=== PATIENT | male | born 1955 | race African-American/Black ===

== ENCOUNTER 2018-02-05 16:09 | Inpatient (IN) ==
[2018-02-05 16:36] LABS: Baso % (Auto) 0.7 % (0.0-2.0); Eos # (Auto) 0.2 th/mm3 (0.0-0.4); Hematocrit 35.3 % (39.0-51.0); Hemoglobin 11.4 gm/dL (13.0-17.0); Lymph # (Auto) 1.9 th/mm3 (1.0-4.8); Mean Corpuscular HGB Conc 32.2 % (32.0-36.0); Mean Platelet Volume 9.2 fL (7.0-11.0); Mono # (Auto) 0.6 th/mm3 (0.0-0.9); Mono % (Auto) 10.6 % (0.0-8.0); Neut # (Auto) 2.6 th/mm3 (1.8-7.7); Neut % (Auto) 49.7 % (16.0-70.0); Platelet Count 158 th/mm3 (150-450); Red Blood Count 4.06 mil/mm3 (4.50-5.90); White Blood Count 5.3 th/mm3 (4.0-11.0)
[2018-02-05 16:52] LABS: Activated Partial Thrombo Time 25.3 sec (24.3-30.1); INR 1.1 Ratio; Prothrombin Time 10.9 sec (9.8-11.6)
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
[2018-02-05] MEDS ORDERED: Diphtheria/Tetanus/Pertussis Vaccine Inj 0.5 ML Syringe IM ONE (17:00)
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
[2018-02-05] MEDS ORDERED: Bisacodyl 10 MG Supp RECTAL PRN (20:27)
[2018-02-05] MEDS ORDERED: Post-op Orders (for Pharmacy) OTHER ONE (20:27)
[2018-02-05] MEDS ORDERED: Naloxone Inj 0.4 MG/ML Vial IV.PUSH PRN (20:27)
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
[2018-02-05] MEDS: Morphine Inj 4 MG/ML Vial IV.PUSH PRN (22:32)
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
[2018-02-05] MEDS ORDERED: Carvedilol 6.25 MG Tablet PO SCH (22:45)
[2018-02-05] MEDS: niCARdipine Inj 25 MG in Sodium Chlor 0.9% Inj 240 ML IV.CONT PRN (23:39)
[2018-02-05] MEDS: Sod Chloride 0.9% Inj 1,000 ML IV.CONT SCH (23:40)
[2018-02-06 01:07] LABS: Amphetamine Screen,Urine Neg (Neg); Barbiturate Screen,Urine Neg (Neg); Cannabinoid Screen,Urine Neg (Neg); Cocaine Screen,Urine Neg (Neg)
[2018-02-06 01:09] LABS: Opiate Screen,Urine Pos (Neg)
[2018-02-06] MEDS: Morphine Inj 4 MG/ML Vial IV.PUSH PRN (03:39)
[2018-02-06] MEDS: niCARdipine Inj 25 MG in Sodium Chlor 0.9% Inj 240 ML IV.CONT PRN ×2 (04:00→08:42)
[2018-02-06 06:42] LABS: Baso # (Auto) 0.1 th/mm3 (0.0-0.2); Baso % (Auto) 0.9 % (0.0-2.0); Eos # (Auto) 0.1 th/mm3 (0.0-0.4); Eos % (Auto) 0.8 % (0.0-4.0); Hemoglobin 11.7 gm/dL (13.0-17.0); Lymph # (Auto) 1.5 th/mm3 (1.0-4.8); Lymph % (Auto) 21.7 % (9.0-44.0); Mean Corpuscular HGB Conc 32.6 % (32.0-36.0); Mean Corpuscular Hemoglobin 28.6 pg (27.0-34.0); Mean Corpuscular Volume 87.6 fL (80.0-100.0); Mean Platelet Volume 10.5 fL (7.0-11.0); Mono # (Auto) 0.6 th/mm3 (0.0-0.9); Mono % (Auto) 7.9 % (0.0-8.0); Neut # (Auto) 4.9 th/mm3 (1.8-7.7); Neut % (Auto) 68.7 % (16.0-70.0); Platelet Count 158 th/mm3 (150-450); Red Cell Distribution Width 14.7 % (11.6-17.2); White Blood Count 7.2 th/mm3 (4.0-11.0)
[2018-02-06 07:06] LABS: Calcium 8.2 mg/dL (8.5-10.1); Carbon Dioxide 24.3 meq/L (21.0-32.0); Potassium 4.2 meq/L (3.5-5.1)
[2018-02-06] MEDS: Senna/Docusate Sodium 8.6/50 MG Tablet PO SCH ×3 (08:36→20:14)
[2018-02-06] MEDS: Lisinopril 10 MG Tablet PO SCH ×3 (08:36→20:15)
[2018-02-06] MEDS: Lidocaine 5% Patch T-DERMAL SCH (08:44)
[2018-02-06] MEDS: Sod Chloride 0.9% Inj 1,000 ML IV.CONT SCH ×2 (08:50→17:32)
[2018-02-06] MEDS: Multivitamin Inj 10 ML, Thiamine Inj 100 MG, Folic Acid Inj 1 MG in Sodium Chlor 0.9% I... IV.SIG SCH (08:51)
[2018-02-06] MEDS ORDERED: amLODIPine 5 MG Tablet PO SCH (10:15)
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
[2018-02-06] MEDS ORDERED: amLODIPine 5 MG Tablet PO ONE (14:25)
[2018-02-06] MEDS ORDERED: hydrALAZINE 25 MG Tablet PO PRN (14:25)
--- NOTE | 2018-02-06 14:44 | ECG ---
Date Performed: 02/05/2018 Time Performed: 22:25:32 PTAGE: 89 years EKG: Sinus Bradycardia. Baseline artifact. Normal ECG except for rate NO PREVIOUS TRACING DOCTOR: Jake Dougherty Interpretating Date/Time 02/06/2018 14:42:30
--- NOTE | 2018-02-06 16:31 | ECHRPT ---
Indication: HHD CONCLUSIONS The left ventricular systolic function is hyperdynamic with an estimated ejection fraction in the ra nge of 65- 70%. Normal left ventricular size. Moderate concentric left ventricular hypertrophy. No regional wall motion abnormalities are present. The pulmonary valve is not well visualized. BP: / HR: Rhythm: MEASUREMENTS (Male / Female) Normal Values Technical Quality: 2D ECHO LV Diastolic Diameter PLAX 5.3 cm 4.2 - 5.9 / 3.9 - 5.3 cm LV Systolic Diameter PLAX 3.3 cm IVS Diastolic Thickness 1.5 cm 0.6 - 1.0 / 0.6 - 0.9 cm LVPW Diastolic Thickness 1.5 cm 0.6 - 1.0 / 0.6 - 0.9 cm LV Relative Wall Thickness 0.6 RV Internal Dim ED PLAX 2.8 cm LVOT Diameter 2.1 cm LA Systolic Diameter LX 3.8 cm 3.0 - 4.0 / 2.7 - 3.8 cm LV Ejection Fraction MOD 4C 69.6 % LV Ejection Fraction 4C AL 71.1 % M-MODE Aortic Root Diameter MM 2.3 cm LA Systolic Diameter MM 3.9 cm LA Ao Ratio MM 1.7 AV Cusp Separation MM 2.5 cm DOPPLER AV Peak Velocity 195.5 cm/s AV Peak Gradient 15.3 mmHg LVOT Peak Velocity 127.0 cm/s LVOT Peak Gradient 6.5 mmHg AV Area Cont Eq pk 2.3 cm MV Area PHT 1.5 cm Mitral E Point Velocity 86.4 cm/s LV E' Lateral Velocity 5.9 cm/s Mitral E to LV E' Lateral Ratio 14.5 LV E' Septal Velocity 5.4 cm/s Mitral E to LV E' Septal Ratio 16.1 PV Peak Velocity 132.0 cm/s PV Peak Gradient 7.0 mmHg FINDINGS LEFT VENTRICLE The left ventricular systolic function is hyperdynamic with an estimated ejection fraction in the ra nge of 65- 70%. Normal left ventricular size. Moderate concentric left ventricular hypertrophy. No regional wall motion abnormalities are present. RIGHT VENTRICLE Normal right ventricular size and systolic function. LEFT ATRIUM The left atrial size is normal. RIGHT ATRIUM The right atrial size is normal. ATRIAL SEPTUM Normal atrial septal thickness without atrial level shunting by limited color doppler interrogation. AORTA The aortic root and proximal ascending aorta are normal in size on limited imaging. MITRAL VALVE Structurally normal mitral valve. No mitral valve stenosis or regurgitation. AORTIC VALVE Trileaflet aortic valve. No aortic valve stenosis or regurgitation. TRICUSPID VALVE Structurally normal tricuspid valve. No tricuspid valve stenosis or regurgitation. PULMONARY VALVE The pulmonary valve is not well visualized. VESSELS The inferior vena cava is normal in size. PERICARDIUM No pericardial effusion. Brody Ervin MD (Electronically Signed) Final Date:06 February 2018 16:30
[2018-02-06] MEDS ORDERED: hydrALAZINE 25 MG Tablet PO ONE (16:45)
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
[2018-02-06] MEDS: Enoxaparin Inj 40 MG/0.4 ML Syringe SQ SCH (21:42)
[2018-02-07] MEDS: Morphine Inj 4 MG/ML Vial IV.PUSH PRN ×2 (01:06→04:36)
[2018-02-07] MEDS: Sod Chloride 0.9% Inj 1,000 ML IV.CONT SCH ×2 (04:58→14:19)
--- NOTE | 2018-02-07 05:43 | XR ---
EXAM DATE: 02/07/2018 5:33 AM EDT AGE/SEX: 62 years / Male INDICATIONS: Shortness of breath. CLINICAL DATA: This is the patient's subsequent encounter. Patient reports that signs and symptoms h ave been present for 2 days and indicates a pain score of Nonresponsive. MEDICAL/SURGICAL HISTORY: Non-responsive. Non-responsive. COMPARISON: [facility], CHEST 1V SINGLE AP, 02/05/2018. . FINDINGS: Single AP view of the chest. Increased left lower lobe atelectasis versus consolidation. Right lung i s clear. Cardiomediastinal silhouette unchanged. No evidence of pleural effusion or pneumothorax. Met allic lead is again seen in the midline mediastinum. CONCLUSION: Slight increase in inferior left lower lobe atelectasis versus consolidation. No other significant in terval change. Electronically signed by: Naveen Abdalla MD 02/07/2018 5:42 AM EDT
[2018-02-07] MEDS: Enoxaparin Inj 40 MG/0.4 ML Syringe SQ SCH (08:28)
[2018-02-07] MEDS: amLODIPine 10 MG Tablet PO SCH (08:28)
[2018-02-07] MEDS: Lidocaine 5% Patch T-DERMAL SCH (08:28)
[2018-02-07] MEDS: Senna/Docusate Sodium 8.6/50 MG Tablet PO SCH ×2 (08:29→21:16)
[2018-02-07] MEDS: Multivitamin Inj 10 ML, Thiamine Inj 100 MG, Folic Acid Inj 1 MG in Sodium Chlor 0.9% I... IV.SIG SCH (08:34)
[2018-02-07] MEDS: Lisinopril 10 MG Tablet PO SCH ×2 (08:34→21:16)
[2018-02-07] MEDS: hydrALAZINE 25 MG Tablet PO SCH (08:34)
--- NOTE | 2018-02-07 09:10 | P.PNCA ---
Subjective Interval history: No sx, sinus gavi to 40 seen, pt generally somnolent Physical Exam Vital signs: Vital Signs 02/06/18 12:00 02/06/18 14:18 02/06/18 16:00 Temperature 98.9 F 98.7 F 98.5 F Pulse Rate 50 L 51 L 42 L Respiratory Rate 17 17 17 Blood Pressure 146/67 H 159/77 H 177/84 H Pulse Oximetry 100 97 99 02/06/18 16:03 02/06/18 20:00 02/07/18 00:00 Temperature 97.7 F 98.4 F Pulse Rate 53 L 44 L Respiratory Rate 18 20 Blood Pressure 166/75 H 183/84 H Pulse Oximetry 97 97 97 02/07/18 02:27 02/07/18 04:00 02/07/18 04:38 Temperature 98.3 F Pulse Rate 50 L Respiratory Rate 18 20 Blood Pressure 200/85 H 190/95 H Pulse Oximetry 96 02/07/18 08:00 02/07/18 08:49 Temperature 98.6 F Pulse Rate 50 L Respiratory Rate 20 Blood Pressure 228/100 H 146/88 H Pulse Oximetry 96 Intake & Output 02/06/18 02/07/18 02/07/18 18:59 06:59 18:59 Intake Total 2541.2 / 2541.2 1360 / 1360 Output Total 1550 / 1550 1200 / 1200 Balance 991.2 / 991.2 160 / 160 Weight 108 kg Intake: IV 2061.2 / 2061.2 1000 / 1000 NS Inj 1,000 ML @ 100 mls/hr IV 1000 / 1000 1000 / 1000 .CONT .Q10H KATHRYN Rx#:[id number] Cardene Inj 25 MG In NS Inj 240 250 / 250 ML @ 5 MG/HR 50 mls/hr IV.CONT TITRATE PRN Rx#:[id number] Ofirmev Inj 1,000 mg In 100 ml 300 / 300 @ 400 mls/hr IV.SIG Q6H KATHRYN Rx# :[id number] MVI-12 Inj 10 ML Thiamine Inj 511.2 / 511.2 100 MG Folvite Inj 1 MG In NS Inj 500 ML @ 127.8 mls/hr IV. SIG DAILY KATHRYN Rx#:[id number] Oral 480 / 480 360 / 360 Output: Urine 1550 / 1550 1200 / 1200 Other: Date of Last Bowel Movement 07/21/18 - Constitutional no acute distress, somnolent - Routine HEENT Exam Head: Present: normocephalic - Routine Cardiovascular Exam Present: murmur, bradycardia - Routine Abdominal Exam Present: soft - Routine Extremities Exam Absent: edema Assessment and Plan - Assessment (1) Syncope Code(s): R55 - Syncope and collapse Status: Acute Plan: Likely med related, but w/ baseline bradycardia will plan for a loop recorder (2) Bradycardia Code(s): R00.1 - Bradycardia, unspecified Status: Acute Plan: suspect some element of KASSANDRA; recommend out pt sleep study, loop as above
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
[2018-02-08 04:23] LABS: Baso % (Auto) 0.6 % (0.0-2.0); Eos # (Auto) 0.1 th/mm3 (0.0-0.4); Hematocrit 36.5 % (39.0-51.0); Lymph # (Auto) 1.8 th/mm3 (1.0-4.8); Lymph % (Auto) 27.6 % (9.0-44.0); Mean Corpuscular HGB Conc 32.8 % (32.0-36.0); Mean Corpuscular Hemoglobin 28.6 pg (27.0-34.0); Mean Corpuscular Volume 87.4 fL (80.0-100.0); Mean Platelet Volume 10.2 fL (7.0-11.0); Mono # (Auto) 0.7 th/mm3 (0.0-0.9); Mono % (Auto) 10.1 % (0.0-8.0); Neut # (Auto) 3.9 th/mm3 (1.8-7.7); Neut % (Auto) 59.7 % (16.0-70.0); Platelet Count 147 th/mm3 (150-450); Red Blood Count 4.17 mil/mm3 (4.50-5.90); Red Cell Distribution Width 14.3 % (11.6-17.2); White Blood Count 6.6 th/mm3 (4.0-11.0)
[2018-02-08] MEDS ORDERED: Midazolam Inj 5 MG/ML 1 ML Vial ONE (07:58)
[2018-02-08] MEDS ORDERED: fentaNYL Citrate Inj 100 MCG/2 ML Ampul ONE (07:58)
--- NOTE | 2018-02-08 08:32 | P.PNCA ---
Subjective Interval history: No new events, he tolerated loop well Physical Exam Vital signs: Vital Signs 02/07/18 08:49 02/07/18 12:00 02/07/18 16:00 Temperature 98.6 F 98.8 F Pulse Rate 64 52 L Respiratory Rate 21 21 Blood Pressure 146/88 H 149/70 H 204/93 H Pulse Oximetry 97 96 02/07/18 19:34 02/07/18 20:00 02/08/18 00:00 Temperature 98.3 F Pulse Rate 53 L 58 L Respiratory Rate 21 20 Blood Pressure 160/88 H 150/85 H Pulse Oximetry 96 96 94 L 02/08/18 02:09 02/08/18 04:00 Temperature 99.1 F Pulse Rate 57 L Respiratory Rate 17 18 Blood Pressure 200/100 H Pulse Oximetry 97 Intake & Output 02/07/18 02/08/18 02/08/18 18:59 06:59 18:59 Intake Total 1240 / 1240 980 / 980 Output Total 800 / 800 2300 / 2300 Balance 440 / 440 -1320 / -1320 Weight 108.2 kg Intake: IV 1000 / 1000 NS Inj 1,000 ML @ 100 mls/hr IV 1000 / 1000 .CONT .Q10H KATHRYN Rx#:[id number] MVI-12 Inj 10 ML Thiamine Inj 0 / 0 100 MG Folvite Inj 1 MG In NS Inj 500 ML @ 127.8 mls/hr IV. SIG DAILY KATHRYN Rx#:[id number] Oral 240 / 240 980 / 980 Output: Urine 800 / 800 2300 / 2300 Other: Date of Last Bowel Movement 02/06/18 02/06/18 - Constitutional no acute distress - Routine HEENT Exam Head: Present: normocephalic Eye: Present: EOMI - Routine Neck Exam Present: supple - Routine Respiratory Exam Present: CTA bilaterally - Routine Cardiovascular Exam Present: bradycardia - Routine Extremities Exam Absent: edema Assessment and Plan - Assessment (1) Syncope Code(s): R55 - Syncope and collapse Status: Acute Plan: Likely med related, but w/ baseline bradycardia; loop in place; HE SHOULD NOT DRIVE FOR SIX MONTHS (2) Bradycardia Code(s): R00.1 - Bradycardia, unspecified Status: Acute Plan: suspect some element of KASSANDRA; recommend out pt sleep study, loop as above - Plan Will sign off, he should f/u with Dr keenan in 1-2 weeks.
--- NOTE | 2018-02-08 08:57 | MA ---
cc: Brody Ervin MD DATE: 02/08/2018 PERFORMING PHYSICIAN: Brody Ervin MD PROCEDURE PERFORMED: 1. 15 minutes moderate IV sedation. 2. Loop recorder insertion. DESCRIPTION OF PROCEDURE: The patient was brought to the DOC unit in the postabsorptive state. After informed consent was obtained, a [employer] LINQ loop recorder was inserted subcutaneously in the left chest. The patient tolerated the procedure well without any apparent complications. Tachybrady pause and atrial fibrillation detection was enabled. The initial R-wave was 0.21 millivolts. The serial number was [id number]. For sedation, the patient received 2 mg of Versed and 25 mcg of fentanyl. Brody Ervin MD KARLA/DL , 08:26 AM , 08:50 AM
[2018-02-08] MEDS ORDERED: ceFAZolin 2 GM IV; once IV.SIG SCH (09:15)
[2018-02-08] MEDS ORDERED: fentaNYL Citrate Inj 100 MCG/2 ML Ampul IV.PUSH SCH (09:15)
[2018-02-08] MEDS: Lidocaine 5% Patch T-DERMAL SCH (09:41)
[2018-02-08] MEDS: hydrALAZINE 25 MG Tablet PO SCH (09:41)
[2018-02-08] MEDS: Enoxaparin Inj 40 MG/0.4 ML Syringe SQ SCH (09:41)
[2018-02-08] MEDS: Lisinopril 10 MG Tablet PO SCH ×2 (09:41→21:01)
[2018-02-08] MEDS: Senna/Docusate Sodium 8.6/50 MG Tablet PO SCH ×2 (09:41→21:01)
[2018-02-08] MEDS: amLODIPine 10 MG Tablet PO SCH (09:41)
[2018-02-08] MEDS: hydroCHLOROthiazide 25 MG Tablet PO SCH (09:47)
[2018-02-08] MEDS: Multivitamin Inj 10 ML, Thiamine Inj 100 MG, Folic Acid Inj 1 MG in Sodium Chlor 0.9% I... IV.SIG SCH (09:47)
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
--- NOTE | 2018-02-08 11:23 | MB ---
cc: Brody Ervin MD DATE: 02/08/2018 PROGRESS NOTE: The patient has a [employer] subcutaneous ICD. The route service representative was called to interrogate the device, which showed no ventricular arrhythmia or ICD shock delivered. Due to the subcutaneous nature of this device no advanced diagnostics are obtainable including diagnostics regarding atrial fibrillation, bradycardia or pauses. The patient now has a loop recorder, which will serve as a diagnostic portion and any further arrhythmia can be treated accordingly. The [employer] route service representative has arranged for its reports to be sent to Dr. Altman's office. MD KARLA Arthur/JOSE , 11:12 AM , 11:22 AM
[2018-02-08] MEDS: Morphine Inj 4 MG/ML Vial IV.PUSH PRN ×2 (15:02→21:00)
[2018-02-08] MEDS ORDERED: Lisinopril 10 MG Tablet PO ONE (15:20)
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
[2018-02-08] MEDS: Lisinopril 20 MG Tablet PO SCH (21:01)
[2018-02-09] MEDS: Morphine Inj 4 MG/ML Vial IV.PUSH PRN ×3 (07:34→21:00)
[2018-02-09] MEDS: Lisinopril 20 MG Tablet PO SCH ×3 (07:35→21:08)
[2018-02-09] MEDS: hydrALAZINE 25 MG Tablet PO SCH ×2 (07:35→08:29)
[2018-02-09] MEDS: Enoxaparin Inj 40 MG/0.4 ML Syringe SQ SCH ×2 (07:37→08:30)
[2018-02-09] MEDS: amLODIPine 10 MG Tablet PO SCH ×2 (07:37→08:30)
[2018-02-09] MEDS: Senna/Docusate Sodium 8.6/50 MG Tablet PO SCH ×3 (07:37→21:08)
[2018-02-09] MEDS: hydroCHLOROthiazide 25 MG Tablet PO SCH ×2 (07:37→10:04)
[2018-02-09] MEDS: Lidocaine 5% Patch T-DERMAL SCH ×2 (07:38→08:30)
--- NOTE | 2018-02-09 07:53 | P.PNCA ---
Subjective Interval history: Pt has done well since loop but has continued to by hypertensive Physical Exam Vital signs: Vital Signs 02/08/18 08:00 02/08/18 09:45 02/08/18 11:00 Temperature 98.1 F 98.1 F 98.6 F Pulse Rate 55 L 55 L Respiratory Rate 18 18 18 Blood Pressure 210/100 H 210/100 H 180/80 H Pulse Oximetry 96 96 97 02/08/18 11:17 02/08/18 13:30 02/08/18 16:00 Temperature 99.7 F H Pulse Rate 52 L 62 Respiratory Rate 18 18 18 Blood Pressure 180/90 H 165/100 H Pulse Oximetry 97 94 L 02/08/18 18:00 02/08/18 19:31 02/08/18 19:44 Temperature 99.1 F Pulse Rate 63 66 Respiratory Rate 19 Blood Pressure 198/83 H Pulse Oximetry 97 96 02/08/18 21:07 02/08/18 23:24 02/08/18 23:33 Temperature 98.6 F Pulse Rate 68 Respiratory Rate 18 19 18 Blood Pressure 208/99 H Pulse Oximetry 93 L 02/08/18 23:47 02/09/18 00:47 02/09/18 03:55 Temperature Pulse Rate 64 62 Respiratory Rate 18 Blood Pressure Pulse Oximetry 02/09/18 05:00 02/09/18 06:10 02/09/18 07:20 Temperature 98.9 F 99.6 F Pulse Rate 65 Respiratory Rate 19 18 16 Blood Pressure 210/99 H 200/140 H Pulse Oximetry 93 L 95 Intake & Output 02/08/18 02/09/18 02/09/18 18:59 06:59 18:59 Intake Total 1262.4 / 1262.4 480 / 480 Output Total 1000 / 1000 1300 / 1300 Balance 262.4 / 262.4 -820 / -820 Weight 107.5 kg Intake: IV 1022.4 / 1022.4 MVI-12 Inj 10 ML Thiamine Inj 1022.4 / 1022.4 100 MG Folvite Inj 1 MG In NS Inj 500 ML @ 127.8 mls/hr IV. SIG DAILY [facility] Rx#:[id number] Oral 240 / 240 480 / 480 Output: Urine 1000 / 1000 1300 / 1300 Other: Date of Last Bowel Movement 07/21/18 07/21/18 # Bowel Movements 0 - Constitutional no acute distress - Routine HEENT Exam Head: Present: normocephalic Eye: Present: EOMI - Routine Neck Exam Present: supple - Routine Respiratory Exam Present: CTA bilaterally - Routine Cardiovascular Exam Present: bradycardia. Absent: murmur - Routine Abdominal Exam Present: soft - Routine Extremities Exam Absent: edema Assessment and Plan - Assessment (1) Syncope Code(s): R55 - Syncope and collapse Status: Acute Plan: SQ AICD w/o shocks, the device cannot give bradycardia/pause/afib data, so loop recorder now in place to provide that information. (2) Bradycardia Code(s): R00.1 - Bradycardia, unspecified Status: Acute Plan: suspect some element of KASSANDRA; recommend out pt sleep study, loop as above (3) HTN (hypertension) Code(s): I10 - Essential (primary) hypertension Status: Acute Plan: Difficult control particularly with pain, added Imdur 60mg daily, holding off on bb given baseline gavi. - Plan Will sign off, he should f/u with Dr keenan in 1-2 weeks.
[2018-02-09] MEDS: Isosorbide Mononitrate 60 MG ER 24HR Tablet (Imdur) PO SCH (08:29)
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
[2018-02-10] MEDS: Isosorbide Mononitrate 60 MG ER 24HR Tablet (Imdur) PO SCH (06:09)
[2018-02-10] MEDS: Lisinopril 20 MG Tablet PO SCH ×2 (08:56→20:20)
[2018-02-10] MEDS: hydrALAZINE 25 MG Tablet PO SCH (08:56)
[2018-02-10] MEDS: amLODIPine 10 MG Tablet PO SCH (08:56)
[2018-02-10] MEDS: Senna/Docusate Sodium 8.6/50 MG Tablet PO SCH ×2 (08:56→20:21)
[2018-02-10] MEDS: hydroCHLOROthiazide 25 MG Tablet PO SCH (08:56)
[2018-02-10] MEDS: Allopurinol 300 MG Tablet PO SCH (08:56)
[2018-02-10] MEDS: Lidocaine 5% Patch T-DERMAL SCH (08:57)
[2018-02-10] MEDS: Enoxaparin Inj 40 MG/0.4 ML Syringe SQ SCH (08:57)
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
[2018-02-11] MEDS: Isosorbide Mononitrate 60 MG ER 24HR Tablet (Imdur) PO SCH ×2 (07:11→07:50)
[2018-02-11] MEDS: Lidocaine 5% Patch T-DERMAL SCH ×2 (07:49→08:26)
[2018-02-11] MEDS: hydroCHLOROthiazide 25 MG Tablet PO SCH ×2 (07:50→08:26)
[2018-02-11] MEDS: hydrALAZINE 25 MG Tablet PO SCH ×2 (07:50→08:26)
[2018-02-11] MEDS: Allopurinol 300 MG Tablet PO SCH ×2 (07:50→08:26)
[2018-02-11] MEDS: amLODIPine 10 MG Tablet PO SCH ×2 (07:50→08:26)
[2018-02-11] MEDS: Senna/Docusate Sodium 8.6/50 MG Tablet PO SCH ×2 (07:50→09:30)
[2018-02-11] MEDS: Lisinopril 20 MG Tablet PO SCH ×2 (07:50→08:26)
[2018-02-11] MEDS: Enoxaparin Inj 40 MG/0.4 ML Syringe SQ SCH ×2 (07:51→08:26)
[2018-02-11 12:20] VITALS: BP 142/76; PULSE 70; RESP 17; TEMP 98.6; O2SAT 93
== END 2018-02-11 15:44 | disposition home or self-care (01) ==
LOC: NEPI 16:09 → EDBD 17:50 → NEDA 17:50 → MERGE 17:50 → N06 18:59 → N03 22:21 → N06 02-06 14:08
PROVIDERS: ADMIT Surgery; ATTEND Surgery